=== PATIENT | male | born 1965 | race Two or more races ===

== ENCOUNTER 2016-10-21 09:35 | Day surgery (SDC) | payer OTHER ==
[2016-10-21] VITALS (10 sets, daily range): BP systolic 99–135; BP diastolic 62–88; PULSE 66–78; RESP 13–19; Ht 167.6 cm; Wt 72.4 kg
[~2016-10-21] VITALS: Ht 167.6 cm; Wt 72.4 kg
[2016-10-21] MEDS ORDERED: TAMS-14 PO (11:23)
[2016-10-21] MEDS ORDERED: LISI10TA2 PO (11:23)
--- NOTE | 2016-10-21 12:28 | HPN ---
Date/Time of Note Date/Time of Note DATE: 10/21/16 TIME: 12:27 Interval H&P Admission Note Pt. seen H&P reviewed: No system changes SATINDER DESAI MD Oct 21, 2016 12:27
[2016-10-21] MEDS ORDERED: METOCLOPRAMIDE 10 MG INJ ONE (13:30)
[2016-10-21] MEDS ORDERED: DEXAMETHASONE 4 MG/ML 1 ML INJ ONE (13:30)
[2016-10-21] MEDS ORDERED: ACETAMINOPHEN 1000MG/100ML IV 100 ML ONE (13:30)
[2016-10-21] MEDS ORDERED: KETOROLAC 30 MG INJ ONE (13:30)
[2016-10-21] MEDS ORDERED: ONDANSETRON 4 MG INJ ONE (13:30)
--- NOTE | 2016-10-21 13:44 | OPR ---
Date/Time of Note Date/Time of Note DATE: 10/21/16 TIME: 13:43 Operative Report Preoperative Diagnosis Right Knee Medial Meniscus Tear Postoperative Diagnosis Same Operation Performed Right Knee Scope, Partial Medial Meniscectomy Surgeon: SATINDER DESAI MD Estimated Blood Loss: minimal Complications: None Pt Condition Post Procedure: stable SATINDER DESAI MD Oct 21, 2016 13:44
[2016-10-21] MEDS ORDERED: OXYCODONE/ACETAMINOPHEN (5/325) TAB PO PRN ×2 (14:00)
[2016-10-21] MEDS ORDERED: MEPERIDINE 25 MG INJ IV PRN (14:00)
[2016-10-21] MEDS ORDERED: morphine (1 MG/ML) 10ML SYRINGE IV PRN ×3 (14:00)
[2016-10-21] MEDS ORDERED: hydrALAzine 20 MG INJ IV PRN (14:00)
[2016-10-21] MEDS ORDERED: LABETALOL HCL 20MG INJ IV PRN (14:00)
[2016-10-21] MEDS ORDERED: ONDANSETRON 4 MG INJ IV PRN (14:00)
[2016-10-21] MEDS ORDERED: DIPHENHYDRAMINE 50 MG INJ IV PRN (14:00)
[2016-10-21] MEDS ORDERED: HYDROmorphONE (0.2 MG/ML) 10ML SYG IV PRN ×3 (14:00)
--- NOTE | 2016-10-21 15:22 | OPR ---
DATE OF OPERATION: 10/21/2016 PREOPERATIVE DIAGNOSIS: Right knee medial meniscus tear. POSTOPERATIVE DIAGNOSIS: Right knee medial meniscus tear. OPERATION PERFORMED: Right knee arthroscopy, partial medial meniscectomy. SURGEON: Aldo Desai MD. 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 ANESTHESIA: General endotracheal anesthesia. ANESTHESIOLOGIST: ____. INDICATIONS FOR PROCEDURE: Mr. David Chris is a 51-year-old male who has had a meniscus tear. He has failed nonoperative treatment and now presents for the above listed procedure. Risks and benef its were discussed. Informed consent was obtained. DESCRIPTION OF PROCEDURE: The patient's correct extremity was identified in the preoperative area. He was brought back to the operating room where he had general endotracheal anesthesia. Right lowe r extremity was prepped and draped in standard sterile manner. A time-out was performed. I then us ed a thigh tourniquet to 250 mmHg. I then made standard medial and lateral portal incisions and used my arthroscope in the medial compartment where a degenerative tear of the posterior horn body of th e medial meniscus was found. This was debrided back to a stable rim. I sucked up the loose fragmen ts with a shaver. I then used an arthrowand to smooth off the remaining meniscus. Upon careful pro komal, there were no loose fragments. The articular surfaces were intact. The rest of the knee was unremarkable. I then took out all my instruments, closed the portal sites with 3-[address] erile dressing was applied. Tourniquet was deflated. The patient's foot was warm and well perfused at the end of the case. He was then extubated and transported to the recovery in stable condition. Dictated By: ALDO DESAI MD, RA/HUSSEIN Conf#: [id number] DID#: [id number]
== END 2016-10-21 16:03 | disposition home or self-care (01) ==
LOC: SDS 09:35
PROVIDERS: ATTEND Specialist
DX: M23.221 Derangement of posterior horn of medial meniscus due to old tear or injury, right knee (principal)
CPT/HCPCS: 29881; J0131; J1100; J1885; J2405; J2765; Z7512; Z7610

== ENCOUNTER 2017-03-28 18:21 | Emergency (ER) | payer OTHER ==
[~2017-03-28] VITALS: Ht 167.6 cm; Wt 77.5 kg
[~2017-03-28 18:21] MED LIST: LISI10TA2 PO; TAMS-14 PO
[2017-03-28 18:30] VITALS: Ht 167.6 cm; Wt 77.5 kg
[2017-03-28] MEDS ORDERED: KETOROLAC 30 MG INJ IV STA (18:43)
[2017-03-28] MEDS ORDERED: SOD CHLORIDE 0.9% 1,000 ML IV STA (18:43)
[2017-03-28] MEDS ORDERED: HYDROmorphONE 1 MG/ML SYG IV STA ×2 (19:20→20:02)
[2017-03-28 19:31] LABS: BASOPHIL # 0.1 10^3/ul (0.0-0.1); BASOPHILS % 0.5 % (0.0-2.0); EOSINOPHILS # 0.2 10^3/ul (0.0-0.5); HEMATOCRIT 40.4 % (42.0-52.0); HEMOGLOBIN 14.5 g/dl (14.0-18.0); LYMPHOCYTES # 2.9 10^3/ul (0.8-2.9); LYMPHOCYTES % 29.7 % (15.0-51.0); MEAN CORPUSCULAR HEMOGLOBIN 30.7 pg (29.0-33.0); MEAN CORPUSCULAR HGB CONC 35.9 g/dl (32.0-37.0); MEAN CORPUSCULAR VOLUME 85.4 fl (82.0-101.0); MEAN PLATELET VOLUME 10.1 fl (7.4-10.4); MONOCYTE # 0.7 10^3/ul (0.3-0.9); MONOCYTES % 7.1 % (0.0-11.0); NEUTROPHIL # 5.9 10^3/ul (1.6-7.5); NEUTROPHILS % 60.5 % (39.0-77.0); PLATELET COUNT 200 10^3/UL (140-415); RED BLOOD COUNT 4.73 10^6/ul (4.70-6.10); RED CELL DISTRIBUTION WIDTH 11.3 % (11.5-14.5); WHITE BLOOD COUNT 9.7 10^3/ul (4.8-10.8)
[2017-03-28 19:38] LABS: ADD UMIC YES; UR ASCORBIC ACID NEGATIVE (NEGATIVE); UR BILIRUBIN (Dip) NEGATIVE (NEGATIVE); UR BLOOD (Dip) 2+ mg/dL (NEGATIVE); UR CLARITY CLEAR (CLEAR); UR COLOR STRAW (YELLOW); UR GLUCOSE (Dip) NEGATIVE (NEGATIVE); UR KETONES (Dip) NEGATIVE (NEGATIVE); UR LEUKOCYTE ESTERASE (Dip) NEGATIVE Leu/ul (NEGATIVE); UR NITRITE (Dip) NEGATIVE (NEGATIVE); UR RBC 44 /HPF (0-5); UR SPECIFIC GRAVITY (Dip) 1.013 (1.003-1.030); UR TOTAL PROTEIN (Dip) NEGATIVE (NEGATIVE); UR UROBILINOGEN (Dip) NEGATIVE (NEGATIVE)
--- NOTE | 2017-03-28 19:48 | RADRPT ---
PROCEDURE: CT Abdomen and Pelvis without contrast. CLINICAL INDICATION: Abdominal and pelvic pain. TECHNIQUE: CT scan of the abdomen and pelvis without contrast was performed. Coronal and sagittal reformatted images were obtained from the axial source images. Images were reviewed on a high-resolu [employer] PACS workstation. Total exam DLP is 580.39 mGy-cm. CTDIvol is 9.24 mGy. One or more of the fo llowin dose reduction techniques were used: Automated exposure control, adjustment of the mA and/or kV according to patient size, use of iterative reconstruction technique. COMPARISON: None. FINDINGS: There is a benign calcified granuloma at the left lung base posteriorly. The lung bases are otherwis e normal. There is no pleural effusion or pericardial effusion. The heart size is normal. The liver is normal in size and attenuation. There is no focal hepatic lesion. The gallbladder and bile ducts are normal. The spleen is mildly enlarged. There is no focal splenic lesion. Both adrenals are normal with no enlargement or mass. The pancreas is unremarkable with no mass or evidence of pancreatitis. There is a nonobstructing 0.2 cm calculus in the upper right kidney and a nonobstructing 0.2 cm calc ulus in the mid right J. There is no right hydronephrosis or right renal mass. The right ureter is n ormal. There is moderate left hydroureteronephrosis due to an obstructing 0.4 cm calculus at the lef t ureterovesicle junction. There is mild left perinephric edema. There is no left renal mass or left renal calculus. The abdominal aorta is not dilated. Vascular calcifications are present consistent with atherosclero sis. There is no retroperitoneal lymphadenopathy or mass. There is no pelvic lymphadenopathy or mass. The bladder and distal ureters are normal. The periappendiceal region is unremarkable with no evidence of appendicitis. The appendix is well se en and appears normal. The bowel and mesentery are normal. There is no free fluid or free gas. The osseous structures are unremarkable with no fracture or lytic lesion. IMPRESSION: 1. Benign calcified granuloma at the left lung base posteriorly. 2. Mild splenomegaly. 3. Nonobstructing 0.2 cm calculus in the upper right kidney and a nonobstructing 0.2 cm calculus in the mid right kidney. 4. Moderate left hydroureteronephrosis due to an obstructing 0.4 cm calculus at the left ureteroves icle junction. 5. Mild left perinephric edema. 6. Atherosclerosis. 7. Normal appendix. 8. Otherwise unremarkable noncontrast CT scan of the abdomen and pelvis. RPTAT: QQ .Ryan Vera MD, MD Date Time Electronically viewed and signed by .Ryan Vera MD, MD on 03/28/2017 19:48 .R/
[2017-03-28 19:49] LABS: ALBUMIN 4.6 g/dl (3.3-4.9); ALBUMIN/GLOBULIN RATIO 1.27; BILIRUBIN,INDIRECT 0.3 mg/dl (0-1.1); BILIRUBIN,TOTAL 0.3 mg/dl (0.2-1.3); CALCIUM 10.5 mg/dl (8.4-10.2); CREATININE 1.57 mg/dl (0.61-1.24); POTASSIUM 4.2 mmol/L (3.5-5.1); TOTAL PROTEIN 8.2 g/dl (6.1-8.1)
[2017-03-28] MEDS ORDERED: OXYC-279 PO (19:57)
[2017-03-28] MEDS ORDERED: TAMS-14 PO (19:57)
[2017-03-28 20:18] VITALS: BP 132/71; PULSE 81; RESP 18; TEMP 98.1
--- NOTE | 2017-03-28 20:19 | ERD ---
ER Documentation Chief Complaint Date/Time DATE: 03/28/17 TIME: 20:13 Chief Complaint left lower abdominal abd. 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 Hx: HTN, Kidney stones HPI 51-year-old male coming in complaining of left lower abdominal pain with flank pain 4 days. Patient has history of kidney stones and feels his pain is related to kidney stone pain. Has had vomiting secondary to pain. Denies fever. Has taken naproxen for pain alleviation with no relief. Denies changes in bowel movement. Last bowel movement was today. Denies chest pain or shortness of breath. History is hypertension. NKDA. Surgical history is knee scope. ROS All systems reviewed and are negative except as per history of present illness. Medications Home Meds Active Scripts Oxycodone HCl/Acetaminophen (Percocet 5-325 mg Tablet) 1 Each Tablet, 1 EACH PO BID, #15 TAB Prov:LESLYE ROMERO PA-C 03/28/17 Tamsulosin Hcl* (Flomax*) 0.4 Mg Cap.er.24h, 0.4 MG PO BID, #30 CAP Prov:LESLYE ROMERO PA-C 03/28/17 Reported Medications Lisinopril* (Lisinopril*) 10 Mg Tablet, 10 MG PO DAILY, #30 TAB 10/21/16 Tamsulosin Hcl* (Flomax*) 0.4 Mg Cap.er.24h, 0.4 MG PO HS, CAP 10/21/16 Allergies Allergies: Coded Allergies: No Known Allergy (Unverified , 10/21/16) PMhx/Soc History of Surgery: Yes (RIGHT KNEE) Anesthesia Reaction: No Hx Neurological Disorder: No Hx Respiratory Disorders: No Hx Psychiatric Problems: No Hx Miscellaneous Medical Probl: Yes (GERD, HTN) Hx Alcohol Use: No Hx Substance Use: No Hx Tobacco Use: No Physical Exam Vitals Vital Signs Date Time Temp Pulse Resp B/P Pulse Ox O2 Delivery O2 Flow Rate FiO2 03/28/17 18:30 98.5 80 22 164/104 97 Physical Exam GENERAL: The patient is well-appearing, well-nourished, in no acute distress HEENT: Atraumatic. Conjunctivae are pink. Pupils equal, round, and reactive to light. There is no scleral icterus. Tympanic membranes clear bilaterally. Oropharynx clear. No nystagmus or photophobia. NECK: C-spine is soft and supple. There is no meningismus. There is no cervical lymphadenopathy. No JVD. No bruits. No goiter. CHEST: Clear to auscultation bilaterally. There are no rales, wheezes or rhonchi. HEART: Regular rate and rhythm. No murmurs, clicks, rubs or gallops. No S3 or S4. ABDOMEN: Tender to palpation over left flank. No CVA tenderness. Normoactive bowel sounds. No distention. No organomegaly. No right upper quadrant or right lower quadrant pain. Result Diagram: 03/28/17191403/28/171914 Results 24 hrs Laboratory Tests Test 03/28/17 19:15 White Blood Count 9.710^3/ul Red Blood Count 4.7310^6/ul Hemoglobin 14.5g/dl Hematocrit 40.4% Mean Corpuscular Volume 85.4fl Mean Corpuscular Hemoglobin 30.7pg Mean Corpuscular Hemoglobin Concent 35.9g/dl Red Cell Distribution Width 11.3% Platelet Count 25612^3/UL Mean Platelet Volume 10.1fl Neutrophils % 60.5% Lymphocytes % 29.7% Monocytes % 7.1% Eosinophils % 2.0% Basophils % 0.5% Nucleated Red Blood Cells % 0.0/100WBC Neutrophils # 5.910^3/ul Lymphocytes # 2.910^3/ul Monocytes # 0.710^3/ul Eosinophils # 0.210^3/ul Basophils # 0.110^3/ul Nucleated Red Blood Cells # 0.010^3/ul Urine Color STRAW Urine Clarity CLEAR Urine pH 6.0 Urine Specific [place] 1.013 Urine Ketones NEGATIVEmg/dL Urine Nitrite NEGATIVEmg/dL Urine Bilirubin NEGATIVEmg/dL Urine Urobilinogen NEGATIVEmg/dL Urine Leukocyte Esterase NEGATIVELeu/ul Urine Microscopic RBC 44/HPF Urine Microscopic WBC 1/HPF Urine Hemoglobin 2+mg/dL Urine Glucose NEGATIVEmg/dL Urine Total Protein NEGATIVEmg/dl Sodium Level 139mmol/L Potassium Level 4.2mmol/L Chloride Level 103mmol/L Carbon Dioxide Level 25mmol/L Anion Gap 15 Blood Urea Nitrogen 24mg/dl Creatinine 1.57mg/dl Glucose Level 106mg/dl Calcium Level 10.5mg/dl Total Bilirubin 0.3mg/dl Direct Bilirubin 0.00mg/dl Indirect Bilirubin 0.3mg/dl Aspartate Amino Transf (AST/SGOT) 39IU/L Alanine Aminotransferase (ALT/SGPT) 35IU/L Alkaline Phosphatase 151IU/L Total Protein 8.2g/dl Albumin 4.6g/dl Globulin 3.60g/dl Albumin/Globulin Ratio 1.27 Lipase 42U/L Current Medications Medications (Trade) Dose Ordered Sig/Delmy Route PRN Reason Start Time Stop Time Status Last Admin Dose Admin Sodium Chloride (NS) 1,000 ml @ 1,000 mls/hr Q1H STAT IV 03/28/17 18:43 03/28/17 19:42 DC 03/28/17 19:13 Ketorolac Tromethamine (Toradol) 30 mg ONCE STAT IV 03/28/17 18:43 03/28/17 18:44 DC 03/28/17 19:12 Hydromorphone HCl (Dilaudid) 1 mg ONCE STAT IV 03/28/17 19:20 03/28/17 19:21 DC 03/28/17 19:28 Hydromorphone HCl (Dilaudid) 0.5 mg ONCE STAT IV 03/28/17 20:02 03/28/17 20:03 DC 03/28/17 20:05 Procedures/MDM ER course: 1 L of saline given in ED. 1.5 IV Dilaudid. 30 mg IV Toradol. Pain improved and under control at discharge. DIAGNOSTIC IMAGING REPORT Patient: GAYE [place] : 1965 Age: 51 Sex: M MR #: [id number] DOS: 03/28/17 1843 Ordering MD: BRETT ROMERO PA-C Location: [facility] Room/Bed: PROCEDURE: CT Abdomen and Pelvis without contrast. CLINICAL INDICATION: Abdominal and pelvic pain. TECHNIQUE: CT scan of the abdomen and pelvis without contrast was performed. Coronal and sagittal reformatted images were obtained from the axial source images. Images were reviewed on a high-resolution PACS workstation. Total exam DLP is 580.39 mGy-cm. CTDIvol is 9.24 mGy. One or more of the following dose reduction techniques were used: Automated exposure control, adjustment of the mA and/or kV according to patient size, use of iterative reconstruction technique. COMPARISON: None. FINDINGS: There is a benign calcified granuloma at the left lung base posteriorly. The lung bases are otherwise normal. There is no pleural effusion or pericardial effusion. The heart size is normal. The liver is normal in size and attenuation. There is no focal hepatic lesion. The gallbladder and bile ducts are normal. The spleen is mildly enlarged. There is no focal splenic lesion. Both adrenals are normal with no enlargement or mass. The pancreas is unremarkable with no mass or evidence of pancreatitis. There is a nonobstructing 0.2 cm calculus in the upper right kidney and a nonobstructing 0.2 cm calculus in the mid right J. There is no right hydronephrosis or right renal mass. The right ureter is normal. There is moderate left hydroureteronephrosis due to an obstructing 0.4 cm calculus at the left ureterovesicle junction. There is mild left perinephric edema. There is no left renal mass or left renal calculus. The abdominal aorta is not dilated. Vascular calcifications are present consistent with atherosclerosis. There is no retroperitoneal lymphadenopathy or mass. There is no pelvic lymphadenopathy or mass. The bladder and distal ureters are normal. The periappendiceal region is unremarkable with no evidence of appendicitis. The appendix is well seen and appears normal. The bowel and mesentery are normal. There is no free fluid or free gas. The osseous structures are unremarkable with no fracture or lytic lesion. IMPRESSION: 1. Benign calcified granuloma at the left lung base posteriorly. 2. Mild splenomegaly. 3. Nonobstructing 0.2 cm calculus in the upper right kidney and a nonobstructing 0.2 cm calculus in the mid right kidney. 4. Moderate left hydroureteronephrosis due to an obstructing 0.4 cm calculus at the left ureterovesicle junction. 5. Mild left perinephric edema. 6. Atherosclerosis. 7. Normal appendix. 8. Otherwise unremarkable noncontrast CT scan of the abdomen and pelvis. MDM: 51-year-old male complaining of left flank pain. Patient has positive findings of nephrolithiasis on CT scan. I have low suspicion for septic stone. Patient does not have signs of urinary tract infection on urinalysis. Patient does have elevated BUN and creatinine however I have low suspicion for acute renal failure at this time. Patient does not require admission. This case was discussed prior to discharge with Dr. Oropeza. I have low suspicion for other acute abdominal emergencies including but not limited to bowel obstruction, appendicitis, mesenteric ischemia. Patient is discharged with strong pain medication and recommended to follow-up with urologist within 1-2 days for close evaluation. Patient is told if symptoms change or worsen to return to the ER. Patient was discharged with strict ER precautions. All questions answered at discharge. Departure Diagnosis: Primary Impression: Kidney stones Condition: Stable Patient Instructions: Kidney Stone W/ Colic Additional Instructions: FOLLOW UP WITH YOUR PRIMARY CARE PHYSICIAN TOMORROW.Return to this facility if you are not improving as expected. LESLYE ROMERO PA-C Mar 28, 2017 20:19
[2017-04-01] MEDS ORDERED: OXYC-279 PO (12:01)
== END 2017-03-28 20:22 | disposition home or self-care (01) ==
LOC: FTE 18:21
DX: N20.0 Calculus of kidney (principal); I10 Essential (primary) hypertension
CPT/HCPCS: 36415; 74176; 80053; 81001; 83690; 85025; 96374; 96375; 96376; J1170; J1885; J7030; Z7502

== ENCOUNTER 2017-04-01 08:45 | Inpatient (IN) | END 2017-04-04 20:35 | disposition home or self-care (01) | DRG 694 | DX: N20.0 Calculus of kidney (principal); N17.9 Acute kidney failure, unspecified; I10 Essential (primary) hypertension; N40.0 Benign prostatic hyperplasia without lower urinary tract symptoms; R22.1 Localized swelling, mass and lump, neck; D64.9 Anemia, unspecified ==

== ENCOUNTER → 2017-04-07 | Outpatient (CLI) | payer OTHER ==
[~2017-04-07] VITALS: Ht 165.1 cm; Wt 75.5 kg
[~2017-04-07] MED LIST changes: -LISI10TA2 PO; +OXYC-279 PO
[2017-04-07 14:33] VITALS: BP 130/79; PULSE 85; RESP 16; Ht 165.1 cm; Wt 75.5 kg
--- NOTE | 2017-04-07 15:45 | PN ---
Date/Time of Note Date/Time of Note DATE: 04/07/17 TIME: 15:40 Outpatient Progress Note Chief Complaint Abdominal pain/kidney stone/hydronephrosis/HPI HPI Abdominal pain/patient has mild abdominal pain, no right side, no nausea vomiting, no fever chill, Kidney stone/patient has nephrolithiasis, causing hydronephrosis, and stone had passed, no fever chill, no blood in the urine, no frequency urgency, no blood in the urine, Hydronephrosis/patient has hydronephrosis secondary to obstructing 4 cm nephrolithiasis, patient feeling better, no pain, no frequency urgency, A/KI no nausea vomiting or pruritus, Review of Systems Const: No Fever, no chills, no Wt. loss, no Fatigue, normal appetite, no diaphoresis. Eyes: No pain, no discharge, no redness, no visual change, no foreign body. ENT: No pain, no bleeding, no congestion, no sore throat, no dysphagia, no discharge or rhinitis. Lymph: No adenopathy, no tender nodes, no lymphedema. Resp: No SOB, no cough, no sputum, no wheezing, no chest pain. CV: No chest pain, no palpitaions, no EASLEY, no PND, no edema. GI: Normal appetite, patient is a minimal right upper quadrant discomfort, pain , no nausea, no vomiting, no diarrhea, no blood, no constipation. : No frequency, no urgency, no dysuria, no hematuria, no flank pain, no discharge, no bleeding. Musc: No back pain, no neck pain, no knee pain, no restricted ROM. Skin: No rash, no skin lesions, no erythema, no laceration, no bruising, no pruritus. Neuro: No CANCINO, no dizziness, no syncope, no seizure, no focal-weakness. Endo: No polyuria, no polydypsia, no dry-skin, no temp-intolerance. Psych: No hallucinations, no depression, no anxiety, no suicidal ideation. Ext: No edema, no pain, no ulcer, no weakness. Physical Exam Vital Signs Date Time Temp Pulse Resp B/P Pulse Ox O2 Delivery O2 Flow Rate FiO2 04/07/17 14:33 98.5 85 16 130/79 98 Room Air General Appearance: A 51 year-old male who appears well-developed, well- nourished, in no acute distress. HEENT: Head normocephalic, atraumatic. Pupils equal, round, reactive to light and accommodate. Sclerae are no jaundice. Nasal turbinates pink without erythema or nasal discharge. Mucous membranes pink and moist without lesions. Oropharynx clear without any exudate or discharge. NECK: Supple. Trachea midline, No thyromegaly, No cervical lymphadenopathy, No mass, No carotid bruits, No JVD, Carotid pulses 2+ bilaterally. PULMONARY: Clear to auscultaion bilaterally, No retractions, Chest expansion symmetric bilaterally, no rales, no ronchi, no dulness on percussion. CARDIAC: Normal SI and S2, Regular rate and rythm, no murmur, gallop, or rub. GASTROINTESTINAL: Abdomen is soft, patient has minimal tenderness in right upper quadrant region, mostly at the site of injection, most likely heparin or Lovenox,, Non Rigid, No distention, Positive bowel sounds x4 quadrants, Liver normal. SKIN: Warm, dry, no rash, no bruise, no echmosis. EXTREMITIES: Bilateral lower extremities normal, no edema, no phlabitus, pulse palpable, no contracture. MUSCULOSKELETAL: Spine Normal, Non-tender, Normal range of motion, No swelling, no deformity, no clubbing, or cyanosis, the patient has no edema to bilateral lower extremities, dorsalis pedis pulses palpable bilaterally. NEUROLOGIC: The patient is awake, alert, oriented, responding to yes/no questions appropriately, moving all extremities, cranial nerve intact, normal strenght, normal power, normal coordination, normal gait. Allergies Coded Allergies: No Known Allergy (Unverified , 04/01/17) PMH Abdominal pain/hydronephrosis/kidney stone/renal insufficiency Social Hx No smoking or drinking, Family Hx Noncontributory Assessment/Plan Impression Abdominal pain Kidney stone passed Hydronephrosis improving Renal insufficiency improving Plan Patient education done, patient is abdominal pain, mostly because of injection and abdominal wall, will monitor closely, Patient encouraged to follow primary care physician, Patient explained if he has a fever or frequency urgency voiding the urine, to see primary care physician, They repeat kidney functions down the road, discussed with the patient, Medications Home Meds Reported Medications Tamsulosin Hcl* (Flomax*) 0.4 Mg Cap.er.24h, 0.4 MG PO HS, CAP 10/21/16 Discontinued Reported Medications Oxycodone HCl/Acetaminophen (Percocet 5-325 mg Tablet) 1 Each Tablet, 1 EACH PO BID Y for PAIN, TAB 04/01/17 Lisinopril* (Lisinopril*) 10 Mg Tablet, 10 MG PO DAILY, #30 TAB 10/21/16 Discontinued Scripts Oxycodone HCl/Acetaminophen (Percocet 5-325 mg Tablet) 1 Each Tablet, 1 EACH PO BID, #15 TAB Prov:LESLYE ROMERO PA-C 03/28/17 Tamsulosin Hcl* (Flomax*) 0.4 Mg Cap.er.24h, 0.4 MG PO BID, #30 CAP Prov:LESLYE ROMERO PA-C 03/28/17 CIRO FINE MD Apr 07, 2017 15:45
== END | disposition home or self-care (01) ==
LOC: DCC 14:22
PROVIDERS: ATTEND Internal Medicine
DX: R10.9 Unspecified abdominal pain (principal); N13.2 Hydronephrosis with renal and ureteral calculous obstruction; N28.9 Disorder of kidney and ureter, unspecified

== ENCOUNTER 2017-04-21 14:04 | Outpatient (CLI) | payer OTHER ==
[~2017-04-21] VITALS: Ht 165.1 cm; Wt 75.0 kg
[~2017-04-21 14:04] MED LIST changes: -OXYC-279 PO
[2017-04-21 14:14] VITALS: BP 127/85; PULSE 86; RESP 18; Ht 165.1 cm; Wt 75.0 kg
[2017-04-21] MEDS ORDERED: HYDR-906 PO (14:17)
--- NOTE | 2017-04-21 14:47 | PN ---
Date/Time of Note Date/Time of Note DATE: 04/21/17 TIME: 14:43 Outpatient Progress Note Chief Complaint Back pain/kidney stone/hydronephrosis/renal insufficiency HPI Back pain/patient has mild bilateral back pain, left side slightly more than right side, patient has a history of hydronephrosis, No fever chill, no blood in the urine, Kidney stone/patient has a kidney stone, hydronephrosis secondary to obstructing 4 cm nephrolithiasis, patient feeling better, pain much improved, Hydronephrosis/no fever chill, no blood in the urine, Renal insufficiency/no nausea or vomiting, no pruritus, not on dialysis, Review of Systems Const: No Fever, no chills, no Wt. loss, no Fatigue, normal appetite, no diaphoresis. Eyes: No pain, no discharge, no redness, no visual change, no foreign body. ENT: No pain, no bleeding, no congestion, no sore throat, no dysphagia, no discharge or rhinitis. Lymph: No adenopathy, no tender nodes, no lymphedema. Resp: No SOB, no cough, no sputum, no wheezing, no chest pain. CV: No chest pain, no palpitaions, no EASLEY, no PND, no edema. GI: Normal appetite, no pain, no nausea, no vomiting, no diarrhea, no blood, no constipation. : No frequency, no urgency, no dysuria, no hematuria, no flank pain, no discharge, no bleeding. Musc: Bilateral back pain, mild occasionally, no neck pain, no knee pain, no restricted ROM. Skin: No rash, no skin lesions, no erythema, no laceration, no bruising, no pruritus. Neuro: No CANCINO, no dizziness, no syncope, no seizure, no focal-weakness. Endo: No polyuria, no polydypsia, no dry-skin, no temp-intolerance. Psych: No hallucinations, no depression, no anxiety, no suicidal ideation. Ext: No edema, no pain, no ulcer, no weakness. Physical Exam Vital Signs Date Time Temp Pulse Resp B/P Pulse Ox O2 Delivery O2 Flow Rate FiO2 04/21/17 14:14 97.4 86 18 127/85 98 Room Air General Appearance: A 51 year-old male who appears well-developed, well- nourished, in no acute distress. HEENT: Head normocephalic, atraumatic. Pupils equal, round, reactive to light and accommodate. Sclerae are no jaundice. Nasal turbinates pink without erythema or nasal discharge. Mucous membranes pink and moist without lesions. Oropharynx clear without any exudate or discharge. NECK: Supple. Trachea midline, No thyromegaly, No cervical lymphadenopathy, No mass, No carotid bruits, No JVD, Carotid pulses 2+ bilaterally. PULMONARY: Clear to auscultaion bilaterally, No retractions, Chest expansion symmetric bilaterally, no rales, no ronchi, no dulness on percussion. CARDIAC: Normal SI and S2, Regular rate and rythm, no murmur, gallop, or rub. GASTROINTESTINAL: Abdomen is soft, non-tender, Non Rigid, No distention, Positive bowel sounds x4 quadrants, Liver normal. SKIN: Warm, dry, no rash, no bruise, no echmosis. EXTREMITIES: Bilateral lower extremities normal, no edema, no phlabitus, pulse palpable, no contracture. MUSCULOSKELETAL: Spine Normal, patient has bilateral mild flank discomfort, normal range of motion, No swelling, no deformity, no clubbing, or cyanosis, the patient has no edema to bilateral lower extremities, dorsalis pedis pulses palpable bilaterally. NEUROLOGIC: The patient is awake, alert, oriented, responding to yes/no questions appropriately, moving all extremities, cranial nerve intact, normal strenght, normal power, normal coordination, normal gait. Allergies Coded Allergies: No Known Allergy (Unverified , 04/01/17) PMH No change Social Hx No change Family Hx No change Assessment/Plan Impression Back pain Kidney stone Hydronephrosis Renal insufficiency Plan Patient education done, if patient has a fever or hematuria or severe back pain patient advised to go to primary care physicians or ER, If patient's back pain persists patient advised to follow with the urologist, Patient education done, and patient to follow with the primary care physician on regular basis, CBC BMP, patient should have all the results before the next visit to primary care physician,, Medications Home Meds Reported Medications Hydrocodone/Acetaminophen ([place] 5-325 Tablet) 1 Each Tablet, 1 EACH PO Q6 Y for PAIN LEVEL 6-10, TAB 04/21/17 Tamsulosin Hcl* (Flomax*) 0.4 Mg Cap.er.24h, 0.4 MG PO HS, CAP 10/21/16 CIRO FINE MD Apr 21, 2017 14:47
== END 2017-04-21 17:00 | disposition home or self-care (01) ==
LOC: DCC 14:04
PROVIDERS: ATTEND Internal Medicine
DX: M54.9 Dorsalgia, unspecified (principal); Z87.442 Personal history of urinary calculi
CPT/HCPCS: G0463